=== PATIENT | female | born 1975 ===

== ENCOUNTER 2018-02-12 08:03 | Outpatient (CLI) | payer OTHER | END 2018-02-12 08:13 | disposition home or self-care (01) | LOC: LAB 08:03 | DX: N39.0 Urinary tract infection, site not specified (principal) ==

== ENCOUNTER → 2018-02-15 18:53 | Outpatient (CLI) | payer OTHER | END | disposition home or self-care (01) | LOC: LAB 18:53 | DX: N39.0 Urinary tract infection, site not specified (principal) ==